=== PATIENT | male | born 1940 | race Caucasian/White ===

== ENCOUNTER 2017-02-28 15:13 | Emergency (ER) | payer OTHER ==
[~2017-02-28] VITALS: Wt 104.3 kg
[~2017-02-28 15:13] MED LIST: ALEVE220 MG PO; ASPIRIN81 M1 PO; LIPITOR40 MG PO; METOPROLOL25 MG PO; MULTIPLE VITAMI1 CAP PO; OMEGA-3 FISH1200 MG PO; RANITIDINE300 MG PO; VIAGRA100 MG PO; VITAMIN C1000 M2 PO
[2017-02-28] MEDS ORDERED: PANTOPRAZOLE SO40 MG PO (15:26)
[2017-02-28] MEDS ORDERED: LISINOPRIL5 MG PO (15:26)
[2017-02-28 16:01] LABS: BASO # 0.1 10*3/uL (0.0-0.1); BASO % 0.8 % (0.0-1.0); EOS # 0.1 10*3/uL (0.0-0.4); EOS % 1.1 % (1.0-4.0); HEMATOCRIT 46.3 % (42.0-52.0); IG # 0.1 10*3/uL (0.0-0.1); LYMPH # 1.4 10*3/uL (1.3-4.4); LYMPH % 19.7 % (27.0-41.0); MEAN CELL VOLUME 93.7 fl (80.0-94.0); MEAN CORPUSCULAR HGB 32.4 pg (27.0-31.0); MEAN CORPUSCULAR HGB CONC 34.6 g/dl (33.0-37.0); MEAN PLATELET VOLUME 9.8 fl (9.6-12.3); MONO # 0.5 10*3/uL (0.1-1.0); MONO % 6.2 % (3.0-9.0); NEUT # 5.2 10*3/uL (2.3-7.9); NEUT % 70.4 % (47.0-73.0); PLATELET COUNT AUTOMATED 189 10*3/uL (130-400); RED BLOOD COUNT 4.94 10*6/uL (4.50-5.90); WHITE BLOOD COUNT 7.3 10*3/uL (4.8-10.8)
[2017-02-28 16:13] LABS: PROTHROMBIN TIME 10.7 SECONDS (9.0-12.4)
[2017-02-28 16:18] LABS: ALBUMIN 3.9 gm/dl (3.1-4.5); ALKALINE PHOSPHATASE 79 U/L (45-117); BILIRUBIN, TOTAL 0.7 mg/dl (0.2-1.0); BUN 25 mg/dl (7-24); CARBON DIOXIDE 23 mmol/L (21-32); CHLORIDE 105 mmol/L (98-107); EST GLOM FILT AFRICAN AMERICAN > 60 ml/min; GLUCOSE 125 mg/dL (65-99); POTASSIUM 4.3 mmol/L (3.5-5.1); SGOT/AST 34 IU/L (3-35); SGPT/ALT 33 U/L (12-78); SODIUM 142 mmol/L (136-145); TOTAL PROTEIN 7.2 gm/dL (6.4-8.2)
[2017-02-28 16:19] LABS: TROPONIN I < 0.015 ng/ml (<0.045)
== END 2017-02-28 17:38 | disposition home or self-care (01) ==
LOC: ED 15:13
PROVIDERS: Physician Assistant
DX: S01.01XA Laceration without foreign body of scalp, initial encounter (principal); S06.0X1A Concussion with loss of consciousness of 30 minutes or less, initial encounter; M54.5 Low back pain; Z79.82 Long term (current) use of aspirin; Z79.899 Other long term (current) drug therapy; Z91.041 Radiographic dye allergy status; W11.XXXA Fall on and from ladder, initial encounter; Y93.89 Activity, other specified; Y92.9 Unspecified place or not applicable; Y99.9 Unspecified external cause status

== ENCOUNTER 2020-11-22 23:52 | Emergency (ER) | payer OTHER ==
[~2020-11-22] VITALS: Ht 190.5 cm; Wt 111.6 kg
[~2020-11-22 23:52] MED LIST changes: +LISINOPRIL5 MG PO; +PANTOPRAZOLE SO40 MG PO
[2020-11-23] MEDS ORDERED: ELIQUIS5 M1 PO (00:10)
[2020-11-23] MEDS ORDERED: FLONASE ALLERG9.9 ML NAS (00:11)
[2020-11-23] MEDS ORDERED: FUROSEMIDE40 MG PO (00:11)
[2020-11-23] MEDS ORDERED: NITROSTAT0.4 MG SL (00:14)
[2020-11-23] MEDS ORDERED: Imdur SA60 MG PO (00:14)
== END 2020-11-23 00:54 | disposition home or self-care (01) ==
LOC: ED 23:52
DX: S30.861A Insect bite (nonvenomous) of abdominal wall, initial encounter (principal); Z91.041 Radiographic dye allergy status; Z79.899 Other long term (current) drug therapy; Z79.82 Long term (current) use of aspirin; Z96.651 Presence of right artificial knee joint; Z98.890 Other specified postprocedural states; Z98.61 Coronary angioplasty status; W57.XXXA Bitten or stung by nonvenomous insect and other nonvenomous arthropods, initial encounter; Y93.89 Activity, other specified; Y92.89 Other specified places as the place of occurrence of the external cause; Y99.8 Other external cause status